=== PATIENT | male | born 2000 | race American Indian/Alaskan Native ===

== ENCOUNTER 2018-11-17 11:59 | Emergency (ER) | payer SELFPAY ==
[2018-11-17 12:19] VITALS: BP 91/49
--- NOTE | 2018-11-17 12:20 | Event Note ---
ED Screening Note Date of service: 11/17/18 Time: 12:16 ED Screening Note: This is a 18 y.o. M. that presents to the ER with hematuria. Patient reports one episode while at work today. CC: frequency, hematuria, dysuria Denies pelvic pain, penile discharge, back pain, and testicular swelling or pain. PMH eczema This initial assessment/diagnostic orders/clinical plan/treatment(s) is/are subject to change based on patients health status, clinical progression and re- assessment by fellow clinical providers in the ED. Further treatment and workup at subsequent clinical providers discretion. Patient/guardian urged not to elope from the ED as their condition may be serious if not clinically assessed and managed. Initial orders include: Urinalysis
[2018-11-17 12:58] LABS: Bilirubin,Urine NEG (Negative); Blood,Urine LG (Negative); Color,Urine Red (Yellow)
[2018-11-17 13:03] LABS: RBC,Urine > 182.0 /HPF (0.0-6.0)
--- NOTE | 2018-11-17 13:35 | Emergency Department Report ---
ED Male HPI - General Chief complaint: Urogenital-Male Stated complaint: BLOOD IN URINE Time Seen by Provider: 11/17/18 12:16 Source: patient Mode of arrival: Ambulatory Limitations: No Limitations - History of Present Illness Initial comments: 18-year-old male presents to ED with hematuria since yesterday. Patient also reports urinary frequency and dysuria. Reports lower abdominal pain, denies back pain, nausea, vomiting, fever. MD Complaint: other (hematuria) -: days(s) (1) Radiation: none Severity: mild Quality: burning Consistency: intermittent Improves with: none Worsens with: urination blood in urine, dysuria. denies: fever, nausea/vomiting - Related Data Previous Rx's Medication Instructions Recorded Last Taken Type Triamcinolone Acetonide 1 - 2 applic TP TID #1 tube 03/27/18 Unknown Rx [Triamcinolone Acetonide Oint 0.5%] predniSONE [Deltasone] 10 mg PO QDAY #5 tab 03/27/18 Unknown Rx Naproxen [Naprosyn] 500 mg PO BID #20 tablet 11/17/18 Unknown Rx Sulfamethoxazole/Trimethoprim 1 each PO BID 5 Days #10 tablet 11/17/18 Unknown Rx [Bactrim DS TAB] Allergies Allergy/AdvReac Type Severity Reaction Status Date / Time No Known Allergies Allergy Verified 03/27/18 10:02 ED Review of Systems ROS: Stated complaint: BLOOD IN URINE Other details as noted in HPI Comment: All other systems reviewed and negative Constitutional: denies: chills, fever Gastrointestinal: abdominal pain. denies: nausea, vomiting Genitourinary: dysuria, frequency, hematuria. denies: testicular pain ED Past Medical Hx - Past Medical History Previous Medical History?: No Additional medical history: eczema - Surgical History Past Surgical History?: No Additional Surgical History: gastroschisis - Social History Smoking Status: Never Smoker Substance Use Type: None - Medications Home Medications: Home Medications Medication Instructions Recorded Confirmed Last Taken Type Triamcinolone Acetonide 1 - 2 applic TP TID #1 tube 03/27/18 Unknown Rx [Triamcinolone Acetonide Oint 0.5%] predniSONE [Deltasone] 10 mg PO QDAY #5 tab 03/27/18 Unknown Rx Naproxen [Naprosyn] 500 mg PO BID #20 tablet 11/17/18 Unknown Rx Sulfamethoxazole/Trimethoprim 1 each PO BID 5 Days #10 tablet 11/17/18 Unknown Rx [Bactrim DS TAB] ED Physical Exam - General Limitations: No Limitations General appearance: alert, in no apparent distress - Head Head exam: Present: atraumatic, normocephalic - Eye Eye exam: Present: normal appearance, PERRL, EOMI - ENT ENT exam: Present: mucous membranes moist - Neck Neck exam: Present: normal inspection - Respiratory Respiratory exam: Present: normal lung sounds bilaterally. Absent: respiratory distress - Cardiovascular Cardiovascular Exam: Present: regular rate, normal rhythm - GI/Abdominal GI/Abdominal exam: Present: soft. Absent: distended, tenderness - Extremities Exam Extremities exam: Present: normal inspection - Back Exam Back exam: Absent: CVA tenderness (R), CVA tenderness (L) - Neurological Exam Neurological exam: Present: alert, oriented X3 - Psychiatric Psychiatric exam: Present: normal affect, normal mood - Skin Skin exam: Present: rash (eczema present) ED Course Vital Signs 11/17/18 12:16 Temperature 98.4 F Pulse Rate 80 Respiratory 16 Rate Blood Pressure 91/49 O2 Sat by Pulse 100 Oximetry Critical care attestation.: If time is entered above; I have spent that time in minutes in the direct care of this critically ill patient, excluding procedure time. ED Disposition Clinical Impression: Hemorrhagic cystitis Disposition: DC-01 TO HOME OR SELFCARE Is pt being admited?: No Condition: Stable Instructions: Urinary Tract Infection in Men (ED) Prescriptions: Sulfamethoxazole/Trimethoprim [Bactrim DS TAB] 1 each PO BID 5 Days #10 tablet Referrals: MARCEL CUNNINGHAM MD [Staff Physician] - as needed [facility] RICH MUELLER MD [Primary Care Provider] - 3-5 Days Time of Disposition: 13:35
== END 2018-11-17 13:40 | disposition home or self-care (01) ==
LOC: ED 11:59
DX: N30.91 Cystitis, unspecified with hematuria (principal)
CPT/HCPCS: 81001; 87086